=== PATIENT | male | born 1970 | race Caucasian/White ===

== ENCOUNTER → 2019-05-11 10:30 | Outpatient (CLI) | payer BC, SELFPAY ==
[2019-05-11 11:42] LABS: Anion Gap 2 (5-15); BUN 9 mg/dL (7-18); BUN/Creat Ratio 9.7 RATIO (10-20); Calcium,Total 8.8 mg/dL (8.5-10.1); Chloride 105 mmol/L (98-107); Cholesterol 225 mg/dL (200); Creatinine, Serum 0.93 mg/dL (0.70-1.30); EST Glomerular Filtration Rate 91 mL/min (>60); Est Glom Filt Rate - Afr Amer 110 mL/min (>60); Glucose 88 mg/dL (74-106); High Density Lipoprotein 46 mg/dL; PSA,Total - Annual Screen 1.92 ng/mL (0.00-4.00); Potassium 4.1 mmol/L (3.5-5.1); Sodium Level 138 mmol/L (136-145); Triglycerides 104 mg/dL; Very Low Density Lipoprotein 21 mg/dL (5-40)
[2019-05-13 20:07] LABS: Endomysial Antibody IgA Negative (Negative)
[2019-05-13 20:30] LABS: Deamidated Gliadin IgA 4 units (0-19); Deamidated Gliadin IgG 2 units (0-19); Immunoglobulin A 162 mg/dL (90-386); t-Transglutaminase IgA <2 U/mL (0-3)
== END ==
PROVIDERS: PCP Family Medicine; Referring Provider Family Medicine; Visit Provider Family Medicine
DX: K90.0 Celiac disease (principal); Z13.1 Encounter for screening for diabetes mellitus; Z13.220 Encounter for screening for lipoid disorders; Z12.5 Encounter for screening for malignant neoplasm of prostate
CPT/HCPCS: 36415; 80048; 80061; 82784; 83516; 84153; 86255; G0103

== ENCOUNTER → 2019-12-26 17:56 | Outpatient (CLI) | payer BC, SELFPAY | PROVIDERS: PCP Family Medicine; Referring Provider Family Medicine; Visit Provider Family Medicine | DX: Z20.828 Contact with and (suspected) exposure to other viral communicable diseases (principal) | CPT/HCPCS: 87635; U0003 ==

== ENCOUNTER → 2022-03-30 | Outpatient (CLI) | payer BC, SELFPAY | END | disposition home or self-care (01) | PROVIDERS: PCP Family Medicine; Visit Provider Family Medicine | DX: K61.1 Rectal abscess (principal) | CPT/HCPCS: 87070; 87186; 87205 ==

== ENCOUNTER → 2022-04-12 | Outpatient (CLI) | payer BC, SELFPAY ==
[2022-04-12 12:24] LABS: Color, Urine Yellow (Yellow); Glucose, Dipstick Normal (Normal); Ketone-Dipstick Negative (Negative); Leukocyte Esterase-Dipstick Negative /ul (Negative); Nitrite-Dipstick Negative (Negative); Occult Blood-Urine Negative /ul (Negative); Protein-Dipstick Negative (Negative); Urine Bilirubin Dipstick Negative (Negative); Urine Clarity Clear (Clear); Urine Urobilinogen Normal (Normal)
[2022-04-12 12:59] LABS: Anion Gap 6 (5-15); BUN 6 mg/dL (7-18); BUN/Creat Ratio 7.1 RATIO (10-20); Calcium,Total 8.9 mg/dL (8.5-10.1); Chloride 99 mmol/L (98-107); Cholesterol 196 mg/dL (200); Creatinine, Serum 0.85 mg/dL (0.70-1.30); EST Glomerular Filtration Rate 100 mL/min (>60); Est Glom Filt Rate - Afr Amer 121 mL/min (>60); Glucose 87 mg/dL (74-106); High Density Lipoprotein 46 mg/dL; PSA,Total - Annual Screen 2.77 ng/mL (0.00-4.00); Potassium 3.7 mmol/L (3.5-5.1); Sodium Level 134 mmol/L (136-145); Triglycerides 99 mg/dL; Very Low Density Lipoprotein 20 mg/dL (5-40)
== END | disposition home or self-care (01) ==
LOC: MFPLAB 11:00
PROVIDERS: PCP Family Medicine; Visit Provider Family Medicine
DX: Z00.00 Encounter for general adult medical examination without abnormal findings (principal); Z13.1 Encounter for screening for diabetes mellitus; Z13.220 Encounter for screening for lipoid disorders; Z12.5 Encounter for screening for malignant neoplasm of prostate
CPT/HCPCS: 36415; 80048; 80061; 81002; 84153; G0103

== ENCOUNTER → 2024-01-30 | Outpatient (CLI) | payer BC, SELFPAY ==
[2024-01-30 17:37] LABS: Absolute Neutrophil Count 3.2 X10^3/uL (2.0-7.7); Basophil# 0.05 X10^3/uL; Basophil% 0.9 % (0-1); Eosinophil# 0.15 X10^3/uL; Eosinophils% 2.6 % (0-5); Hematocrit 42.4 % (40-54); Hemoglobin 14.5 g/dL (13.0-16.5); Lymphocyte % 31.5 % (19-41); Mean Corp Hgb Conc 34.2 g/dL (32-36); Mean Corpuscular Hgb 30.5 pg (27.0-32.0); Mean Corpuscular Volume 89.3 fL (80-94); Monocyte# 0.47 X10^3/uL; Monocyte% 8.2 % (0-10); NRBC Flagged by Analyzer 0 % (0-5); Neutrophil # 3.22 X10^3/uL (2.7-7.7); Neutrophil % 56.4 % (47-70); Platelet Count 309 K/mm3 (150-450); RBC Distribution Width CV 11.6 % (11.6-14.6); RBC Distribution Width SD 37.9 fl (35.1-43.9); Red Blood Count 4.75 M/mm3 (4.6-6.2); White Blood Count 5.7 K/mm3 (4.4-11.0)
[2024-01-30 17:58] LABS: AST(SGOT) 21 U/L (15-37); Alanine Aminotransfer ALT/SGPT 38 U/L (16-61); Albumin, Serum 3.7 g/dL (3.2-5.0); Alkaline Phosphatase 64 U/L (45-117); Anion Gap 5 (5-15); BUN 9 mg/dL (7-18); BUN/Creat Ratio 11.4 RATIO (10-20); Chloride 98 mmol/L (98-107); Creatinine, Serum 0.79 mg/dL (0.70-1.30); EST Glomerular Filtration Rate 108 mL/min (>60); Est Glom Filt Rate - Afr Amer 131 mL/min (>60); Globulin 3.6 g/dL (2.2-4.2); Glucose 105 mg/dL (74-106); Potassium 3.9 mmol/L (3.5-5.1); Protein, Total 7.3 g/dL (6.4-8.2); Sodium Level 131 mmol/L (136-145)
[2024-01-30 18:48] LABS: Hemoglobin A1c 5.7 % (3.8-5.6)
== END | disposition home or self-care (01) ==
PROVIDERS: PCP Family Medicine; Visit Provider Family Medicine
DX: R39.11 Hesitancy of micturition (principal)
CPT/HCPCS: 36415; 80053; 83036; 84153; 85025; G0103

== ENCOUNTER 2024-04-29 07:31 | Day surgery (SDC) | payer BC, SELFPAY ==
[2024-04-29] VITALS (10 sets, daily range): BP systolic 91–106; BP diastolic 68–77; PULSE 60–71; RESP 16; TEMP 36.2–36.7; O2SAT 96–100; BMI 24.3
--- NOTE | 2024-04-29 08:02 | H&P.OPEN ---
[facility] - General General Date of Service: 04/29/24 HPI Narrative JUS BERG, is a 54 M who presents for colonoscopy due to history of colon polyps. Patient had a colonoscopy [address] Sahu polyps that time. Patient denies any family history of colon cancer. Patient denies any chronic abdominal pain/nausea/vomiting/reflux. Patient has bowel movements daily denies any blood. [facility] Medical History (Updated 04/29/24 @ 08:[address] Lissette Metz MD) Family hx colonic polyps High cholesterol Gastric reflux Non-smoker Leg cramps BPH (benign prostatic hyperplasia) Hx of colonic polyps Scoliosis Diarrhea Gluten intolerance Hemorrhoids Home Medications ?Medication ?Instructions ?Recorded ?Last Taken ?Type multivitamin 1 tab PO QDAY 02/23/24 04/28/24 History saw palmetto 450 mg capsule 450 mg PO BID 02/23/24 04/28/24 History Allergy/AdvReac Type Severity Reaction Status Date / Time No Known Allergies Allergy Verified 04/29/24 07:54 Family History (Updated 02/23/24 @ 10:05 by Zuleam Browning) Father Prostate cancer Surgical History (Updated 04/01/22 @ 11:05 by Flor Appiah) History of oral surgery History of wisdom tooth extraction History of colonoscopy (~2019) History of vasectomy History of repair of anterior cruciate ligament Social History (Updated 02/23/24 @ 10:06 by Zulema Browning) household members: spouse number of children: 6 current occupational status: employed Smoking Status: Never smoker alcohol intake: current alcohol intake frequency: holidays/special occasions only Alcohol type: beer substance use type: does not use Past Medical/Surgical History Planned Operation Planned Operative Procedure(s): COLONOSCOPY Previous Hospitalizations/Surgeries HX Hospitalizations: No Any Problems With Anesthesia: No You/Your Family Experience Fever (Hyperthermia) With Anes: No Cholinesterase deficiency: No Cardiovascular Hx Hypertension: No Respiratory Hx Sleep Apnea: No Hx Respiratory Tract Infection/Cold (presently): No Do You Snore Loudly (louder than talking or can be heard): No Do You Often Feel Tired/ Fatigued/ Sleepy Dring Daytime?: No Has Anyone Observed You Stop Breathing During Sleep?: No Result (for STOP score): Negative Smoking Status: Never smoker Neurological Does patient have nerve stimulator: No Miscellaneous Recent Exposure to Contagious Disease: No Allergies No Known Allergies Allergy (Verified 04/29/24 07:54) Discharge Is Pt Admitted From a [facility], or a Senior Living: No Who Could Help: After D/C, Where Do you Plan to Go: Return Home Vital Signs Vital Signs Vital Signs: 04/29/24 07:55 04/29/24 07:55 Temperature 97.7 F L Temperature Source Temporal Pulse Rate 71 Respiratory Rate 16 Respiratory Pattern Normal Blood Pressure 106/77 Blood Pressure Mean 86 Blood Pressure Source Monitor Blood Pressure Position Semi-Fowlers Blood Pressure Location Left Arm Pulse Ox 100 Oxygen Delivery Method Room Air Weight Weight: 160 lb 4.417 oz Body Mass Index (BMI) 24.3 Physical Exam Const alert, oriented x3 and no apparent distress HEENT normocephalic and head/scalp atraumatic Resp normal respiratory effort Cardio regular rate GI soft to palpation and non-tender; Negative for non-distended Palpation: Negative for guarding Extremity no clubbing, cyanosis or edema Skin no rashes or lesions noted Neuro CN's II-XII intact bilaterally Psych mental status grossly normal Assessment & Plan Assessment/Plan (1) Hx of colonic polyps: Surgery Risks - Colonoscopy I discussed with the patient the risks of the procedure: Yes Risks Include but are not Limited To: Risks include but are not limited to: Bleeding, perforation requiring further surgery, inability to complete colonoscopy requiring barium enema.
--- NOTE | 2024-04-29 08:13 | PRE.ANES_ITS ---
ASA Classification* ASA Classification ASA Classification: 2 Assessment & Plan Anesthesia* Anesthesia Assessment Anesthesia Assessment: Discussed sedation and/or anesthesia options, risks, benefits, and alternatives with patient/parents/legal guardian/POA. Questions invited. The patient/parents/legal guardian/POA seems to understand and agrees to proceed with anesthesia plan. Reviewed the physical assessment, medical history, allergy history and patient home medications list prior to surgery/procedure/anesthetic and documented any changes. Performed airway and anesthesia risk assessments. Anesthesia Type Anesthesia Type: MAC Anesthesia Focused Assessment* Temperature: 97.7 F Pulse Rate: 71 Blood Pressure: 106/77 Respiratory Rate: 16 Pulse Ox: 100 Airway Assessment Mouth opens: >3 cm Mallampati Score: II Focused Labs Anesthesia Preop lab: CBC WBC 5.7 K/mm3 (4.4-11.0) 01/30/24 16:34 01/30/24 RBC 4.75 M/mm3 (4.6-6.2) 01/30/24 16:34 01/30/24 Hgb 14.5 g/dL (13.0-16.5) 01/30/24 16:34 01/30/24 Hct 42.4 % (40-54) 01/30/24 16:34 01/30/24 Plt Count 309 K/mm3 (150-450) 01/30/24 16:34 01/30/24 CHEMISTRY Potassium 3.9 mmol/L (3.5-5.1) 01/30/24 16:34 01/30/24 Sodium 131 mmol/L (136-145) L 01/30/24 16:34 01/30/24 BUN 9 mg/dL (7-18) 01/30/24 16:34 01/30/24 Creatinine 0.79 mg/dL (0.70-1.30) 01/30/24 16:34 01/30/24 Glucose 105 mg/dL (74-106) 01/30/24 16:34 01/30/24 COAG Pre-Assessment Diagnosis/Proposed Procedure Planned Operative Procedure(s): COLONOSCOPY Anesthesia History Anesthesia History - wet process assistant head miller: Anesthesia History - wet process assistant head miller Hx Hospitalization No 04/29/24 08:03 Any Problems With Anesthesia No 04/29/24 08:03 Cholinesterase deficiency No 04/29/24 08:03 You/Your Family Experience No 04/29/24 08:03 fever (hyperthermia) with Relationship Recent Exposure to Contagious No 04/29/24 08:03 Disease Does patient have nerve No 04/29/24 08:03 stimulator Patient instructed to have device shut off --Does patient have Pacemaker No 04/29/24 07:55 or ICD? When Was Last Pacemaker Check QUESTION #4 FULL TEXT: You/Your Family Experience fever (hyperthermia) with Anesthesia Last Oral Intake Last Oral intake: Last Oral Intake NPO since 00:00 04/29/24 07:55 Meds taken in AM with sips of No 04/29/24 07:55 water? Meds patient instructed to take am of surgery PONV PONV - wet process assistant head miller: PONV - wet process assistant head miller Female No 04/25/24 11:55 HX of Motion Sickness Yes 04/25/24 11:55 HX of N/V After Surgery No 04/25/24 11:55 Non-Smoker Yes 04/25/24 11:55 Duration of Surgery greater No 04/25/24 11:55 than 60 minutes Number of Risk Factors 2 04/25/24 11:55 PONV Score Moderate Risk 04/25/24 11:55 Height & Weight Height & Weight: Anesthesia: Height & Weight Height 5 ft 8 in 04/29/24 07:55 Weight: 72.7 kg 04/29/24 07:55 Body Mass Index (BMI) 24.3 04/29/24 07:55 Respiratory Assessment Respiratory Assessment - wet process assistant head miller: Respiratory Tract Infection Hx - wet process assistant head miller Hx Respiratory Tract Infection No 04/29/24 08:03 STOP Sleep Apnea STOP Sleep Apnea - wet process assistant head miller: STOP Sleep Apnea - wet process assistant head miller Hx Hypertension No 04/29/24 08:03 Hx Sleep Apnea No 04/29/24 08:03 CPAP BIPAP Do you snore loudly (louder No 04/29/24 08:03 than talking or can be heard Do you often feel tired/ No 04/29/24 08:03 fatigued/ sleepy during daytime? Has anyone observed you stop No 04/29/24 08:03 breathing during sleep? STOP Results Negative 04/29/24 08:03 QUESTION #5 FULL TEXT : Do you snore loudly (louder than talking or can be heard through closed doors)? 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 Specify any problems Hx of Preganancy in last 3 N/A 04/25/24 11:55 Months Nurse Filling Out Transfusion MGRIFFITH 04/25/24 11:55 & Questions: Date: 04/25/24 04/25/24 11:55 Time: 11:57 04/25/24 11:55 Patient unable to answer at this time (ie. confused, unrespo /Reproduction History /Reproductive History - wet process assistant head miller: /Reproductive Hx- wet process assistant head miller Hx Now Gestational Age (in weeks): EDC: Hx Hx Para Hx Section SAB PFSH Medical History (Updated 04/29/24 @ 08:[address] Lissette Metz MD) Family hx colonic polyps High cholesterol Gastric reflux Non-smoker Leg cramps BPH (benign prostatic hyperplasia) Hx of colonic polyps Scoliosis Diarrhea Gluten intolerance Hemorrhoids Home Medications ?Medication ?Instructions ?Recorded ?Last Taken ?Type multivitamin 1 tab PO QDAY 02/23/2404/28 History saw palmetto 450 mg capsule 450 mg PO BID 02/23/24 History Allergy/AdvReac Type Severity Reaction Status Date / Time No Known Allergies Allergy Verified 04/29/24 07:54 Family History (Updated 02/23/24 @ 10:05 by Zulema Browning) Father Prostate cancer Surgical History (Updated 04/01/22 @ 11:05 by Flor Appiah) History of oral surgery History of wisdom tooth extraction History of colonoscopy (~2019) History of vasectomy History of repair of anterior cruciate ligament Social History (Updated 02/23/24 @ 10:06 by Zulema Browning) household members: spouse number of children: 6 current occupational status: employed Smoking Status: Never smoker alcohol intake: current alcohol intake frequency: holidays/special occasions only Alcohol type: beer substance use type: does not use Review of Systems (Anesthesia) ROS Narrative System reviewed and no additional complaints, except as documented.
--- NOTE | 2024-04-29 08:45 | COLBX_PTH ---
PATIENT: JUS BERG LOC: EN U#:[id number] AGE/SX: 54/M ROOM: RE04/29/[address]: Dr. Lissette Metz MD : 1970 BED: DIS: 04/29/2024 SPEC #: [id number] RECD: 04/29/24 09:56 STATUS: SYLVIA KEVAN #: [id number] TARAH: 04/29/24 08:[address]: Lissette Metz DEPT: SURGICAL PATHOLOGY RECD BY: Azael Grady ENTERED: 04/29/24 11:20 SP TYPE: COLON BX OTHR DR: Dr. Raz Spencer MD Tissues: A - Transverse colon B - Descending colon Procedures: Surgery Specimen Level IV HEADER OPERATION: Colonoscopy, biopsy of polyps PRE-OP DIAGNOSIS: History of colonic polyps TISSUE SUBMITTED: A- Transverse colon polyp biopsy, B- Descending colon polyp biopsy MICROSCOPIC DIAGNOSIS A. Transverse colon polyp, biopsy: Tubular adenoma. B. Descending colon polyp, biopsy: Hyperplastic colonic mucosa with lymphoid nodules. PW. 04/30/2024 MICROSCOPIC DESCRIPTION Slides are reviewed. GROSS DESCRIPTION A. Received in fixative is one container labeled with the patient's name and designated Transverse colon polyp biopsy. The specimen consists of one irregular fragment of light lima soft tissue that measures 0.4 x 0.4 x 0.1 cm. The specimen is totally submitted in one cassette. B. Received in fixative is one container labeled with the patient's name and designated Descending colon polyp biopsy. The specimen consists of two irregular fragments of light lima soft tissue that in aggregate measure 1 x 0.5 x 0.1 cm. The specimen is totally submitted in one cassette. 04/29/2024 TC:5 [facility]:[id number]
--- NOTE | 2024-04-29 09:08 | OP.COLON_ITS ---
Patient Name: Jeremy Banerjee Procedure Date: 04/29/2024 8:39 AM Date of : 1970 Age: 54 Procedure: Colonoscopy Indications: High risk colon cancer surveillance: Personal history of colonic polyps Providers: Lissette Metz MD Referring MD: Andrez Spencer Medicines: Monitored Anesthesia Care Patient Profile: This is a 54 year old male. Last Colonoscopy: 5 years ago. Complications: No immediate complications. Procedure: Pre-Anesthesia Assessment: - Prior to the procedure, a History and Physical was performed, and patient medications and allergies were reviewed. The patient's tolerance of previous anesthesia was also reviewed. The risks and benefits of the procedure and the sedation options and risks were discussed with the patient. All questions were answered, and informed consent was obtained. Prior Anticoagulants: The patient has taken no anticoagulant or antiplatelet agents. ASA Grade Assessment: Per anesthesia. After reviewing the risks and benefits, the patient was deemed in satisfactory condition to undergo the procedure. After I obtained informed consent, the scope was passed under direct vision. Throughout the procedure, the patient's blood pressure, pulse, and oxygen saturations were monitored continuously. The Colonoscope was introduced through the anus and advanced to the terminal ileum. The colonoscopy was performed without difficulty. The patient tolerated the procedure well. The quality of the bowel preparation was good. Scope In: 8:48:14 AM Scope Withdrawal Time 0 hours 7 minutes 57 seconds Scope Out: 9:02:07 AM Total Procedure Duration Time 0 hours 13 minutes 53 seconds Findings: The digital rectal exam was normal. Pertinent negatives include normal prostate (size, shape, and consistency) and no anal lesion or abnormality. Non-bleeding external and internal hemorrhoids were found. The hemorrhoids were small and Grade I (internal hemorrhoids that do not prolapse). Two sessile polyps were found in the descending colon and transverse colon. The polyps were less than 5 mm in size. These polyps were removed with a cold snare. Resection and retrieval were complete. The exam was otherwise without abnormality. Impression: - Non-bleeding external and internal hemorrhoids. - Two less than 5 mm polyps in the descending colon and in the transverse colon, removed with a cold snare. Resected and retrieved. - The examination was otherwise normal. Recommendation: - Discharge patient to home. - Resume previous diet. - Continue present medications. - Await pathology results. - Repeat colonoscopy in 5 years for surveillance based on pathology results. Procedure Code(s): --- Professional --- 09493, PT, Colonoscopy, flexible; with removal of tumor(s), polyp(s), or other lesion(s) by snare technique Diagnosis Code(s): --- Professional --- Z86.010, Personal history of colonic polyps K64.0, First degree hemorrhoids D12.4, Benign neoplasm of descending colon D12.3, Benign neoplasm of transverse colon (hepatic flexure or splenic flexure) CPT copyright 2021 [employer]. All rights reserved. The codes documented in this report are preliminary and upon mill and coal transport operator review may be revised to meet current compliance requirements. MD Lissette Black MD 04/29/2024 9:07:42 AM This report has been signed electronically. Number of Addenda: 0 Note Initiated On: 04/29/2024 8:39 AM
--- NOTE | 2024-04-29 09:08 | OP.CCLET_ITS ---
04/29/2024 Andrez Spencer [address] [place] [address] Re : Colonoscopy procedure for Jeremy Banerjee Dear Dr. Spencer This procedure was performed on Monday, April 29, 2024. My impressions and recommendations are as follows: Impressions : - Non-bleeding external and internal hemorrhoids. - Two less than 5 mm polyps in the descending colon and in the transverse colon, removed with a cold snare. Resected and retrieved. - The examination was otherwise normal. Recommendations : - Discharge patient to home. - Resume previous diet. - Continue present medications. - Await pathology results. - Repeat colonoscopy in 5 years for surveillance based on pathology results. My findings are described in the full procedure note, which is enclosed. If I can be of further assistance, please feel free to contact me at Doctor phone number(s): , Work: . Sincerely, MD Lissette Black MD 04/29/2024 9:07:42 AM This report has been signed electronically.
--- NOTE | 2024-04-29 09:11 | PCM.POST.ANE ---
Anesthesia: Postop Eval I Current Vital Signs Temperature: 97.2 F Pulse Rate: 68 Blood Pressure: 91/68 Respiratory Rate: 16 Pulse Ox: 97 Oxygen Delivery Method: Room Air Assessment Airway patent: Yes Spontaneous unlabored respirations: Yes Mental status: Asleep nausea: No Vomiting: No Anesthesia Complication: No Fluid Hydration Crystalloid volume administer (ml): 50 Total IV fluid infused: 50 Progress Note Anesthesia document: Postop Eval 1 completed: Yes
--- NOTE | 2024-04-29 11:10 | PCM.POSTANE2 ---
Anesthesia Postop Eval I Sum Postop Eval Completion status Anesthesia document: Postop Eval 1 completed: Yes Anesthesia Postop Eval I Summary Anesthesia Postop Eval I Summary: Anesthesia Postop Eval I: Assessment Summary Airway patent Yes 04/29/24 09:12 [email or web address] Spontaneous unlabored Yes 04/29/24 09:12 [email or web address] respirations Mental status Asleep 04/29/24 09:12 [email or web address] nausea No 04/29/24 09:12 [email or web address] Vomiting No 04/29/24 09:12 [email or web address] Anesthesia Postop Eval I: Fluid Summary Crystalloid volume administer 50 04/29/24 09:12 [email or web address] (ml) Colloids volume administered ( ml) Blood Product volume administered (ml) Total IV fluid infused 50 04/29/24 09:12 [email or web address] Anesthesia Postop Eval I: Summary Notes Anesthesia Complication No 04/29/24 09:12 [email or web address] Anesthesia Complication Comment: Post-operative progress note Anesthesia: Postop Eval II Evaluation Mental status: Awake Pain Level: 0 nausea: No Vomiting: No
== END 2024-04-29 10:12 | disposition home or self-care (01) ==
LOC: EN 07:31 → AC 07:32
PROVIDERS: PCP Family Medicine; Referring Provider Family Medicine; Visit Provider Surgery
PROC: 0DJD8ZZ Inspection of Lower Intestinal Tract, Via Natural or Artificial Opening Endoscopic (ICD-10-PCS; CPT 45378; principal; 2024-04-29 08:40)
DX: Z12.11 Encounter for screening for malignant neoplasm of colon (principal); Z86.0100 Personal history of colon polyps, unspecified; E78.00 Pure hypercholesterolemia, unspecified; D12.3 Benign neoplasm of transverse colon; K21.9 Gastro-esophageal reflux disease without esophagitis; K64.0 First degree hemorrhoids; K64.4 Residual hemorrhoidal skin tags
CPT/HCPCS: 45385; 88305; A4216; J2405